=== PATIENT | male | born 1970 | race Caucasian/White ===

== ENCOUNTER 2018-03-17 19:28 | Emergency (ER) | payer OTHER ==
[2018-03-17] MEDS ORDERED: SODIUM CHLORIDE 0.9% 1,000 ML IV ONE (20:11)
[2018-03-17 20:13] LABS: Basophils % (A) 1 %; Eosinophils # (A) 0.2 k/uL (0-0.7); Eosinophils % (A) 4 %; HCT 45.9 % (39.0-53.0); HGB 15.4 gm/dL (13.0-17.5); Lymphocytes % (A) 17 %; MCHC 33.6 g/dL (31.0-37.0); MCV 95.4 fL (80.0-100.0); Mean Platelet Volume 6.9; Monocytes # (A) 0.3 k/uL (0-1.0); Monocytes % (A) 6 %; Neutrophils # (A) 3.9 k/uL (1.3-7.7); Neutrophils % (A) 70 %; Platelet Count 142 k/uL (150-450); RBC 4.81 m/uL (4.30-5.90); RDW 12.8 % (11.5-15.5); WBC 5.6 k/uL (3.8-10.6)
--- NOTE | 2018-03-17 20:13 | ED ---
General Adult HPI - General Chief complaint: Chest Pain Stated complaint: chest tightness/high BP Time Seen by Provider: 03/17/18 20:06 Source: patient Mode of arrival: wheelchair Limitations: no limitations - History of Present Illness Initial comments: 47-year-old male patient with past medical history significant for myocardial infarction with stent placement, noncompliant with medical therapy, presents to the emergency department today for evaluation of dizziness and disequilibrium that started Wednesday. Patient states that every morning upon waking he has been feeling like he cannot get his balance and has to hold onto furniture to stay steady. Patient states that as the day goes on his symptoms improve. Patient states that today the dizziness has persisted. She states also his blood pressure has been elevated over the last few days. Patient denies any headache, blurred vision, double vision, extremity weakness, numbness, or tingling. Patient denies any neck or back pain, fever, chills, chest pain, shortness of breath, nausea, or vomiting. 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 Patient states he has increased his water intake but this has not improved his symptoms. He denies any nasal congestion, nasal drainage, or ear pain. Denies any history of similar symptoms. Patient denies any recent rash, abdominal pain, diarrhea, constipation, hematuria, dysuria, urinary urgency, urinary frequency, or any other complaints. - Related Data Home Medications Medication Instructions Recorded Confirmed Omeprazole 20 mg PO DAILY 03/17/18 03/17/18 Previous Rx's Medication Instructions Recorded Meclizine HCl 25 mg PO BID #14 tablet 03/17/18 Allergies Allergy/AdvReac Type Severity Reaction Status Date / Time Penicillins Allergy Unknown Verified 03/17/18 20:02 Childhood Review of Systems ROS Statement: Those systems with pertinent positive or pertinent negative responses have been documented in the HPI. ROS Other: All systems not noted in ROS Statement are negative. Past Medical History Past Medical History: Coronary Artery Disease (CAD), Hyperlipidemia, Hypertension, Myocardial Infarction ([place]) History of Any Multi-Drug Resistant Organisms: None Reported Past Surgical History: Appendectomy, Heart Catheterization With Stent, Hernia Repair, Orthopedic Surgery Past Psychological History: No Psychological Hx Reported Smoking Status: Never smoker Past Alcohol Use History: Occasional Past Drug Use History: None Reported General Exam Limitations: no limitations General appearance: alert, in no apparent distress, other (This is a well- developed, well-nourished adult male patient in no acute distress. Vital signs upon presentation are temperature 98.1F, pulse 74, respirations 20, blood pressure 163/104, pulse ox 99% on room air.) Eye exam: Present: normal appearance, PERRL, EOMI. Absent: scleral icterus, conjunctival injection, nystagmus, periorbital swelling ENT exam: Present: normal exam, normal oropharynx, mucous membranes moist Respiratory exam: Present: normal lung sounds bilaterally. Absent: respiratory distress, wheezes, rales, rhonchi, stridor Cardiovascular Exam: Present: regular rate, normal rhythm, normal heart sounds. Absent: systolic murmur, diastolic murmur, rubs, gallop, clicks GI/Abdominal exam: Present: soft, normal bowel sounds. Absent: distended, tenderness, guarding, rebound, rigid Neurological exam: Present: alert, oriented X3, CN II-XII intact Expanded Speech: Present: fluid speech Cranial nerves: EOM's Intact: Normal, Tongue Deviation: Normal, Nystagmus: Normal Motor strength exam: RUE: 5, LUE: 5, RLE: 5, LLE: 5 Psychiatric exam: Present: normal affect, normal mood Skin exam: Present: warm, dry, intact, normal color. Absent: rash Course Vital Signs 03/17/18 03/17/18 03/17/18 19:32 20:24 22:05 Temperature 98.1 F 96.9 F L Pulse Rate 74 88 Pulse Rate [ 73 Sitting] Pulse Rate [ 72 Standing] Pulse Rate [ 65 Supine] Respiratory 20 18 Rate Blood Pressure 163/104 156/99 Blood Pressure 153/102 [Sitting] Blood Pressure 171/102 [Standing] Blood Pressure 151/88 [Supine] O2 Sat by Pulse 99 98 Oximetry EKG Findings - EKG Comments: EKG Findings:: EKG obtained at 1943 shows normal sinus rhythm with a ventricular rate of 63, DE interval 150, QRS duration 108, QTC 416, QTC 425. Medical Decision Making - Medical Decision Making 47-year-old male patient presented to the emergency department today for evaluation of dizziness and balance issues for the last 3 days. Physical examination is unremarkable. Patient is neurologically intact. Labs reviewed and are unremarkable. Chest x-ray showed no acute cardiopulmonary process. Patient did have some elevated blood pressures during stay. Patient reported that dizziness worsened whenever he turned his head quickly. The patient did receive meclizine here in the department, did improve his symptoms. Patient symptoms are consistent with vertigo. I did offer to perform computed tomography scan for further evaluation, patient refused at this time stating that he would rather try the medication and follow up with his doctor. Patient is instructed to follow-up with his primary care physician/manager environmental health for further evaluation of elevated blood pressures. Return parameters were discussed in detail. He verbalizes understanding and agreed with this plan. - Lab Data Result diagrams: 03/17/18 19:50 03/17/18 19:50 Lab Results 03/17/18 03/17/18 03/17/18 Range/Units 19:50 19:50 19:50 WBC 5.6 (3.8-10.6) k/uL RBC 4.81 (4.30-5.90) m/uL Hgb 15.4 (13.0-17.5) gm/dL Hct 45.9 (39.0-53.0) % MCV 95.4 (80.0-100.0) fL MCH 32.0 (25.0-35.0) pg MCHC 33.6 (31.0-37.0) g/dL RDW 12.8 (11.5-15.5) % Plt Count 142 L (150-450) k/uL Neutrophils % 70 % Lymphocytes % 17 % Monocytes % 6 % Eosinophils % 4 % Basophils % 1 % Neutrophils # 3.9 (1.3-7.7) k/uL Lymphocytes # 1.0 (1.0-4.8) k/uL Monocytes # 0.3 (0-1.0) k/uL Eosinophils # 0.2 (0-0.7) k/uL Basophils # 0.0 (0-0.2) k/uL PT (9.0-12.0) sec INR (<1.2) APTT (22.0-30.0) sec Sodium 138 (137-145) mmol/L Potassium 4.2 (3.5-5.1) mmol/L Chloride 104 (98-107) mmol/L Carbon Dioxide 25 (22-30) mmol/L Anion Gap 9 mmol/L BUN 18 (9-20) mg/dL Creatinine 0.88 (0.66-1.25) mg/dL Est GFR (CKD-EPI)AfAm >90 (>60 ml/min/1.73 sqM) Est GFR (CKD-EPI)NonAf >90 (>60 ml/min/1.73 sqM) Glucose 99 (74-99) mg/dL Calcium 9.6 (8.4-10.2) mg/dL Total Bilirubin 0.8 (0.2-1.3) mg/dL AST 49 (17-59) U/L ALT 75 H (21-72) U/L Alkaline Phosphatase 67 (38-126) U/L Total Creatine Kinase 138 (55-170) U/L CK-MB (CK-2) 1.7 (0.0-2.4) ng/mL CK-MB (CK-2) Rel Index 1.2 Troponin I <0.012 (0.000-0.034) ng/mL Total Protein 7.2 (6.3-8.2) g/dL Albumin 4.3 (3.5-5.0) g/dL 03/17/18 Range/Units 19:50 WBC (3.8-10.6) k/uL RBC (4.30-5.90) m/uL Hgb (13.0-17.5) gm/dL Hct (39.0-53.0) % MCV (80.0-100.0) fL MCH (25.0-35.0) pg MCHC (31.0-37.0) g/dL RDW (11.5-15.5) % Plt Count (150-450) k/uL Neutrophils % % Lymphocytes % % Monocytes % % Eosinophils % % Basophils % % Neutrophils # (1.3-7.7) k/uL Lymphocytes # (1.0-4.8) k/uL Monocytes # (0-1.0) k/uL Eosinophils # (0-0.7) k/uL Basophils # (0-0.2) k/uL PT 10.1 (9.0-12.0) sec INR 1.0 (<1.2) APTT 23.2 (22.0-30.0) sec Sodium (137-145) mmol/L Potassium (3.5-5.1) mmol/L Chloride (98-107) mmol/L Carbon Dioxide (22-30) mmol/L Anion Gap mmol/L BUN (9-20) mg/dL Creatinine (0.66-1.25) mg/dL Est GFR (CKD-EPI)AfAm (>60 ml/min/1.73 sqM) Est GFR (CKD-EPI)NonAf (>60 ml/min/1.73 sqM) Glucose (74-99) mg/dL Calcium (8.4-10.2) mg/dL Total Bilirubin (0.2-1.3) mg/dL AST (17-59) U/L ALT (21-72) U/L Alkaline Phosphatase (38-126) U/L Total Creatine Kinase (55-170) U/L CK-MB (CK-2) (0.0-2.4) ng/mL CK-MB (CK-2) Rel Index Troponin I (0.000-0.034) ng/mL Total Protein (6.3-8.2) g/dL Albumin (3.5-5.0) g/dL - Radiology Data Radiology results: report reviewed, image reviewed Two-view x-ray of the chest is obtained. Heart media's enema normal. Lungs are clear. Diaphragm is normal. There are chest leads. Impression by Dr. De La Rosa shows normal chest with no change. Disposition Clinical Impression: Vertigo Disposition: HOME SELF-CARE Condition: Good Instructions: Vertigo (ED) Additional Instructions: Increase fluids. Take medications as directed. Follow-up through primary care physician for recheck as soon as possible. Follow up with her manager environmental health or rechecks as possible. Return here immediately for any new, worsening, or concerning symptoms. Prescriptions: Meclizine HCl 25 mg PO BID #14 tablet Is patient prescribed a controlled substance at d/c from ED?: No Referrals: Carlos Kenny MD [Primary Care Provider] - 1-2 days Time of Disposition: 21:53
[2018-03-17 20:19] LABS: Partial Thromboplastin Time 23.2 sec (22.0-30.0); Prothrombin Time 10.1 sec (9.0-12.0)
[2018-03-17 20:24] LABS: ALT 75 U/L (21-72); AST 49 U/L (17-59); Albumin 4.3 g/dL (3.5-5.0); Alkaline Phosphatase 67 U/L (38-126); Anion Gap 9 mmol/L; Blood Urea Nitrogen 18 mg/dL (9-20); Calcium 9.6 mg/dL (8.4-10.2); Carbon Dioxide 25 mmol/L (22-30); Chloride 104 mmol/L (98-107); Glucose 99 mg/dL (74-99); Potassium 4.2 mmol/L (3.5-5.1); Sodium 138 mmol/L (137-145); Total Bilirubin 0.8 mg/dL (0.2-1.3); Total Protein 7.2 g/dL (6.3-8.2)
[2018-03-17 20:27] LABS: Creatine Kinase 138 U/L (55-170)
[2018-03-17 20:40] LABS: Creatine Kinase MB 1.7 ng/mL (0.0-2.4); Troponin I <0.012 ng/mL (0.000-0.034)
[2018-03-17] MEDS ORDERED: MECLIZINE 12.5 MG TAB PO STA (20:53)
[2018-03-17 22:08] VITALS: BP 156/99; PULSE 88; RESP 18; TEMP 96.9
--- NOTE | 2018-03-17 23:20 | XR ---
EXAMINATION TYPE: XR chest 2V DATE OF EXAM: 03/17/2018 COMPARISON: 08/30/2015 HISTORY: Chest pain TECHNIQUE: Frontal and lateral views of the chest are obtained. FINDINGS: Heart and mediastinum are normal. Lungs are clear. Diaphragm is normal. There are chest le ads. IMPRESSION: Normal chest. No change.
== END 2018-03-17 22:05 | disposition home or self-care (01) ==
LOC: EC 19:28
DX: R42 Dizziness and giddiness (principal); R07.89 Other chest pain; I10 Essential (primary) hypertension; I25.10 Atherosclerotic heart disease of native coronary artery without angina pectoris; I25.2 Old myocardial infarction; Z95.5 Presence of coronary angioplasty implant and graft; Z53.29 Procedure and treatment not carried out because of patient's decision for other reasons; Z79.899 Other long term (current) drug therapy; Z88.0 Allergy status to penicillin
CPT/HCPCS: 36415; 71046; 80053; 82550; 82553; 84484; 85025; 85610; 85730; 93005; 96360; 99285

== ENCOUNTER 2018-08-03 08:12 | Emergency (ER) | payer OTHER ==
[2018-08-03 08:17] VITALS: BP 164/98; PULSE 87; RESP 18; TEMP 97.8
[2018-08-03] MEDS ORDERED: DIPH,PERTUS(ACELL)TETVAC-LF 0.5 ML VIAL IM ONE (08:18)
[2018-08-03] MEDS ORDERED: GELATIN SPONGE,ABSORB (LARGE) 1 EACH SPONGE TOPICAL STA (08:28)
[2018-08-03] MEDS ORDERED: TOPICAL SKIN ADHESIVE 1 EACH AMP TOPICAL ONE (08:28)
--- NOTE | 2018-08-03 08:31 | ED ---
Wound/Laceration HPI - General Chief Complaint: Wound/Laceration Stated Complaint: [facility] LEFT HAND INJURY Time Seen by Provider: 08/03/18 08:18 Source: patient, RN notes reviewed, old records reviewed Mode of arrival: ambulatory Limitations: no limitations - History of Present Illness Initial Comments: Patient is a 47-year-old male who presents emergency from today with a laceration over his left axilla second digit in the distal third digit from a seater grinder at work. He works at [employer] Patient reports that the seater grinder went through his glove. He states he has full range of motion of the fingers. He states the second digit laceration is superficial over the dorsum of the hand. The third digit has a 2 cm laceration that would not stop bleeding. The bleeding is well-controlled at this time. Patient was ready [facility]. He does state that his teeth Is up-to-date within the past 5 years. He is concerned because the wound was quite dirty. Patient denies any other symptoms including Peripheral paresthesias. He denies any headache, chest pain, shortness of breath, nausea, vomiting, abdominal pain, diarrhea, dysuria or back pain. - Related Data Home Medications Medication Instructions Recorded Confirmed No Known Home Medications 08/03/18 08/03/18 Allergies Allergy/AdvReac Type Severity Reaction Status Date / Time Penicillins Allergy Unknown Verified 08/03/18 08:21 Childhood Review of Systems ROS Statement: Those systems with pertinent positive or pertinent negative responses have been documented in the HPI. ROS Other: All systems not noted in ROS Statement are negative. Past Medical History Past Medical History: Coronary Artery Disease (CAD), Hyperlipidemia, Hypertension, Myocardial Infarction ([place]) History of Any Multi-Drug Resistant Organisms: None Reported Past Surgical History: Appendectomy, Heart Catheterization With Stent, Hernia Repair, Orthopedic Surgery Past Psychological History: No Psychological Hx Reported Smoking Status: Never smoker Past Alcohol Use History: Occasional Past Drug Use History: None Reported General Exam - General Exam Comments Initial Comments: This is a pleasant 47-year-old male. Alert and oriented. No significant distress. Limitations: no limitations General appearance: alert, in no apparent distress Head exam: Present: atraumatic, normocephalic, normal inspection Eye exam: Present: normal appearance, PERRL, EOMI. Absent: scleral icterus, conjunctival injection, periorbital swelling ENT exam: Present: normal exam, mucous membranes moist Neck exam: Present: normal inspection. Absent: tenderness, meningismus, lymphadenopathy Respiratory exam: Present: normal lung sounds bilaterally. Absent: respiratory distress, wheezes, rales, rhonchi, stridor Cardiovascular Exam: Present: regular rate, normal rhythm, normal heart sounds. Absent: systolic murmur, diastolic murmur, rubs, gallop, clicks Left Hand Wrist exam: Present: full ROM, abrasion (She has a 1 cm abrasion over the proximal second digit.), laceration (2 cm laceration over the distal interphalangeal joint of the third digit. Bleeding is well-controlled.). Absent: normal inspection Neuro motor exam: Present: wrist extension intact, thumb opposition intact, thumb IP flexion intact, thumb adduction intact, fingers 2-5 abduction intact Vascular: Present: normal capillary refill Back exam: Present: normal inspection Neurological exam: Present: alert Psychiatric exam: Present: normal affect, normal mood Skin exam: Present: warm, dry, intact, normal color. Absent: rash Course Vital Signs 08/03/18 08:14 Temperature 97.8 F Pulse Rate 87 Respiratory 18 Rate Blood Pressure 164/98 O2 Sat by Pulse 98 Oximetry Procedures - Laceration Laceration #1 Site: upper extremity (Distal third digit) Size (cm): 1 Description: avulsion Pre-repair: wound explored, irrigated extensively Type of Sutures: other (gelfoam) Patient Tolerated Procedure: well, no complications Medical Decision Making - Medical Decision Making 47-year-old male presents for service today with a laceration over the second proximal digit which was superficial abrasion. Also a laceration over the distal third digit. Skin avulsion. Bleeding is well-controlled at this time. With movement it does tend to reopen. The skin is avulsed so sutures are not able to be placed to close this. It is over the medial aspect of the DIP. X- rays completed. No fracture. There was a small foreign body within the distal wrist. This is external debris. No evidence of laceration or puncture wound at that site. His tetanus is up-to-date. The wound was closed and advised on infection Monitoring. I discussed keeping the Gelfoam on for the next 1-2 days and is only having it removed with warm water. Patient agrees to treatment plan will comply. Patient was following up with by S. - Radiology Data Radiology results: report reviewed Soft tissue swelling on the third and fourth digits a laceration on the radial aspect of the distal third digit. No acute osseous abnormality seen. 5 mm stranding of foreign body density with superficial dorsal wrist soft tissues possible external debris. Clinical correlation. Disposition Clinical Impression: Laceration of finger of left hand Disposition: HOME SELF-CARE Condition: Good Instructions (If sedation given, give patient instructions): Laceration (ED) Additional Instructions: Keep the Gelfoam and dressings on for the next 1-2 days. Afterwards remove the dressing with warm water. Patient should follow-up with [facility]. Return to the emergency department if any alarming signs or symptoms occur. Is patient prescribed a controlled substance at d/c from ED?: No Referrals: Carlos Kenny MD [Primary Care Provider] - 1-2 days Time of Disposition: 09:21
--- NOTE | 2018-08-03 09:03 | XR ---
EXAMINATION TYPE: XR hand complete LT DATE OF EXAM: 08/03/2018 COMPARISON: 11/17/2013 HISTORY: 47-year-old male with third and fourth finger laceration, pain TECHNIQUE: 3 views FINDINGS: There is soft tissue injury along the radial aspect of the third digit at the level of the DIP joint. Soft tissue swelling of the third and fourth digits. No retained radiopaque foreign body. No acute f racture, subluxation, dislocation. Small linear density measuring 5 mm long projecting at the dorsal superficial wrist soft tissues. Correlate for any extrinsic foreign body. There is a small corticated ossicle measuring 4 mm now better seen at the ulnocarpal joint. Possible sequela of old injury. IMPRESSION: 1. Soft tissue swelling swelling to the third and fourth digits and laceration along the radial aspec t of the distal third digit. No acute osseous abnormality seen. 2. A 5 mm strand of foreign body density in the superficial dorsal wrist soft tissues, possible exter nal debris. Clinically correlate.
== END 2018-08-03 09:32 | disposition home or self-care (01) ==
LOC: EC 08:12
DX: S61.213A Laceration without foreign body of left middle finger without damage to nail, initial encounter (principal); S60.411A Abrasion of left index finger, initial encounter; S60.852A Superficial foreign body of left wrist, initial encounter; I25.10 Atherosclerotic heart disease of native coronary artery without angina pectoris; I25.2 Old myocardial infarction; Z95.5 Presence of coronary angioplasty implant and graft; Z88.0 Allergy status to penicillin; Z53.8 Procedure and treatment not carried out for other reasons; W29.8XXA Contact with other powered hand tools and household machinery, initial encounter; Y92.69 Other specified industrial and construction area as the place of occurrence of the external cause; Y99.0 Civilian activity done for income or pay
CPT/HCPCS: 99283

== ENCOUNTER → 2018-08-29 | Outpatient (CLI) | payer OTHER ==
--- NOTE | 2018-08-29 10:50 | XR ---
EXAMINATION TYPE: XR finger LT DATE OF EXAM: 08/29/2018 COMPARISON: None HISTORY: Laceration left middle finger, caught in precision grinder external TECHNIQUE: Three-view left middle finger FINDINGS: No radiopaque foreign bodies are evident. No acute fractures are evident. Joint spaces are preserved. Soft tissues are normal. IMPRESSION: 1. Normal three-view left middle finger.
== END ==
LOC: RADXRMAIN 10:22
PROVIDERS: ATTEND Family Medicine
DX: S61.203D Unspecified open wound of left middle finger without damage to nail, subsequent encounter (principal)

== ENCOUNTER 2020-10-14 14:29 | Emergency (ER) | payer OTHER ==
--- NOTE | 2020-10-14 14:53 | ED ---
General Adult HPI - General Stated complaint: COVID+,Sent by pcp for BAM Time Seen by Provider: 10/14/20 14:50 Source: patient, RN notes reviewed Mode of arrival: ambulatory Limitations: no limitations - History of Present Illness Initial comments: This a 50-year-old male presents emergency Department chief complaint of positive test. Patient's had cough and congestion shortness of breath. Patient states that he was sent over by PCP for monoclonal antibody infusion. Patient does have prior cardiac disease. Patient has a BMI of 39. Patient denies any recent fevers - Related Data Home Medications Medication Instructions Recorded Confirmed No Known Home Medications 08/03/18 08/03/18 Allergies Allergy/AdvReac Type Severity Reaction Status Date / Time Penicillins Allergy Unknown Verified 10/14/20 14:48 Childhood Review of Systems ROS Statement: Those systems with pertinent positive or pertinent negative responses have been documented in the HPI. ROS Other: All systems not noted in ROS Statement are negative. Past Medical History Past Medical History: Coronary Artery Disease (CAD), Hyperlipidemia, Hypertension, Myocardial Infarction ([place]) History of Any Multi-Drug Resistant Organisms: None Reported Past Surgical History: Appendectomy, Heart Catheterization With Stent, Hernia Repair, Orthopedic Surgery Past Psychological History: No Psychological Hx Reported Past Alcohol Use History: Occasional Past Drug Use History: None Reported General Exam General appearance: alert, in no apparent distress Head exam: Present: atraumatic, normocephalic, normal inspection Eye exam: Present: normal appearance, PERRL, EOMI. Absent: scleral icterus, conjunctival injection, periorbital swelling ENT exam: Present: normal exam, normal oropharynx, mucous membranes moist, TM's normal bilaterally Neck exam: Present: normal inspection. Absent: tenderness, meningismus, lymphadenopathy Respiratory exam: Present: normal lung sounds bilaterally. Absent: respiratory distress, wheezes, rales, rhonchi, stridor Cardiovascular Exam: Present: regular rate, normal rhythm, normal heart sounds. Absent: systolic murmur, diastolic murmur, rubs, gallop, clicks Neurological exam: Present: alert, oriented X3 Skin exam: Present: warm, dry, intact, normal color. Absent: rash Course Vital Signs 10/14/20 10/14/20 14:48 17:20 Temperature 98.3 F 97.7 F Pulse Rate 82 64 Respiratory 18 16 Rate Blood Pressure 135/84 138/91 O2 Sat by Pulse 96 97 Oximetry Medical Decision Making - Medical Decision Making Patient will receive monoclonal antibodies. Patient will be discharged stable condition after infusion. Disposition Clinical Impression: COVID-19 Disposition: HOME SELF-CARE Condition: Stable Instructions (If sedation given, give patient instructions): Coronavirus Disease 2019 (COVID-19) Additional Instructions: Please return to the Emergency Department if symptoms worsen or any other concerns. Is patient prescribed a controlled substance at d/c from ED?: No Referrals: Carlos Kenny MD [Primary Care Provider] - 1-2 days Time of Disposition: 14:53
[2020-10-14] MEDS ORDERED: BAMLANIVIMAB (EUA) 700 MG, ETESEVIMAB (EUA) 1,400 MG in SODIUM CHLORIDE 0.9% 50 ML IVPB ONE (15:40)
[2020-10-14] MEDS ORDERED: SODIUM CHLORIDE 0.9% 50 ML IVPB ONE (16:00)
[2020-10-14 17:23] VITALS: BP 138/91; PULSE 64; RESP 16; TEMP 97.7
== END 2020-10-14 17:00 | disposition home or self-care (01) ==
LOC: EC 14:29
DX: U07.1 COVID-19 (principal); I25.2 Old myocardial infarction; Z88.0 Allergy status to penicillin
CPT/HCPCS: 96361; 96365; 99284

== ENCOUNTER → 2022-02-26 | Outpatient (CLI) | payer OTHER ==
--- NOTE | 2022-02-26 16:54 | P.SLEEP ---
History of Present Illness DATE: 02/26/2022 CONSULTATION/NEW PATIENT EVALUATION HISTORY OF PRESENT ILLNESS/SLEEP-WAKE EVALUATION: 51year old gentleman had b een evaluated in the sleep center for obstructive sleep apnea hypopnea syndrome. Patient has been diagnosed with extremely severe obstructive sleep apnea hypopnea syndrome in our institution in September 2012. At that time apnea-hypopnea index 98.2. Since that time patient is on treatment with CPAP every night for the whole night. Presently he started to wake up from sleep, which she never had been changed to new machine. SLEEP SCHEDULE: Usually sleep schedule on weekdays from 11 PM to 6 AM, during days off from midnight until 78 AM. FALLING ASLEEP: No problems with falling asleep, no TV in bedroom. DURING SLEEP: Patient wakes up from sleep up to 8 times without nocturia. No history of hypnogogical hallucinations, sleep paralysis, or cataplexy. DURING THE DAY/WAKE STATE: During the day she feels sleepy takes 1 nap around 4 PM. [place] sleepiness scale is 4.[]. PAST MEDICAL HISTORY: Hypertension, hyperlipidemia, coronary artery disease. PAST SURGICAL HISTORY: Stent insertion to coronary artery, right ACL surgical treatment, appendectomy. MEDICATIONS: Metoprolol, atorvastatin, saxeyda. SOCIAL HISTORY: Positive history of smoking for about 8 pack years quit esteban , alcohol consumption none at the present time. FAMILY HISTORY: Hypertension, arthritis, pneumonia. REVIEW OF SYSTEMS: Multiple awakenings from sleep while using CPAP. No fevers. No double vision. No recent chest pain. No shortness of breath. No abdominal pain. No bleeding episodes. No blood in urine. No seizure episodes. PHYSICAL EXAMINATION: GENERAL: A pleasant patient without any distress. VITAL SIGNS: BP 129/80 , HR 74 , RR 16 , weight 274.6 pounds, height 5 foot 10" half inches, body mass index 38.7 . HEENT: PERRLA, EOMI. Evaluation of oropharynx showed tongue protrudes midline, l ow position of soft palate Mallampati 3. NECK: Supple. No JVD. Thyroid is not palpable. 19 inches in circumference. LUNGS: Clear to percussion and to auscultation. Good air exchange. No wheezing or rhonchi. HEART: S1, S2 regular. No murmurs, gallops or rubs. ABDOMEN: Soft and nontender. Bowel sounds are present. No organomegaly appreciated. EXTREMITIES: No clubbing or cyanosis. TEAM FACILITATOR: Awake, alert, and oriented x3. Cranial nerves 2 to 7 intact. There is no fasciculation or atrophy noted. No focal deficits observed. ASSESSMENT: 1. Extremely severe obstructive sleep apnea hypopnea syndrome for 10 years. Apnea-hypopnea index in 2013 98.2. Patient continue to use his CPAP equipment, but started to wake up well using his CPAP multiple times. 2. Obesity body mass index 38.7. 3 hypertension. 4. Coronary artery disease status post stent insertion. 5 hyperlipidemia. 6. Status post a surgical treatment of ACL problem on the right side. 7. Status post appendectomy. PLAN: 1. CPAP/BiPAP titration for correction of respiratory abnormalities during sleep. 2. Patient will receive new Pap unit and all necessary supplies for treatment after Pap titration. 3. Preferable position during sleep on the side. 4. No driving if patient feels any sleepiness. Patient is aware of civil and criminal liability for unsafe driving. 5. Sleep hygiene with regular sleep time for at least 7.5-8 hours. 6. Watching weight. Thank you very much for referring this patient for consultation. Sincerely, Hank Shah MD, PhD, FAASM. Diplomat of [place] [employer], Sleep Medicine Board by [place] [employer] [place] [employer] [facility] Past Medical History Past Medical History: Coronary Artery Disease (CAD), Hyperlipidemia, Hypertension, Myocardial Infarction ([place]) History of Any Multi-Drug Resistant Organisms: None Reported Past Surgical History: Appendectomy, Heart Catheterization With Stent, Hernia Repair, Orthopedic Surgery Past Psychological History: No Psychological Hx Reported Past Alcohol Use History: Occasional Past Drug Use History: None Reported Medications and Allergies Home Medications Medication Instructions Recorded Confirmed Type No Known Home Medications 08/03/18 08/03/18 History Allergies Allergy/AdvReac Type Severity Reaction Status Date / Time Penicillins Allergy Unknown Verified 10/14/20 14:48 Childhood Sleep Note - Sleep Note Sleep Note: Temperature: Pulse Rate: Respiratory Rate: Blood Pressure: SpO2: Height: Weight: BMI: Neck Circumference:
== END | disposition home or self-care (01) ==
LOC: SLEEP 15:33
PROVIDERS: ATTEND Internal Medicine
DX: G47.33 Obstructive sleep apnea (adult) (pediatric) (principal); E66.9 Obesity, unspecified; Z68.38 Body mass index [BMI] 38.0-38.9, adult; I10 Essential (primary) hypertension; I25.10 Atherosclerotic heart disease of native coronary artery without angina pectoris; E78.5 Hyperlipidemia, unspecified; Z90.89 Acquired absence of other organs; Z98.890 Other specified postprocedural states
CPT/HCPCS: 99211